=== PATIENT | female | born 1945 | race Caucasian/White ===

== ENCOUNTER 2019-09-14 17:05 | Inpatient (IN) | payer MEDICARE, OTHER ==
[~2019-09-14] VITALS: Ht 160 cm; Wt 46.7 kg
--- NOTE | 2019-09-14 17:20 | NUR ---
Patient bib pvt ambulance from [facility], on a 5150 for GD. Speech is clear, speaks in complete sentences. A/Ox2. No acute neuro deficits. Per report, patient was barging into other residents rooms and disrobing/taking clothes off. Respiratory even and unlabored, no cough no sob. No acute cardiovascular distress. No /GI symptoms. Patient in bed at lowest position, sr upx2, call light within reach. Fall precautions implemented per protocol.
[2019-09-14 17:42] LABS: BASOPHILS % (AUTO) 0.5 % (0.0-2.0); EOSINOPHILS # (AUTO) 0.3 K/uL (0.0-0.7); EOSINOPHILS % (AUTO) 4.4 % (0.0-7.0); HEMATOCRIT 35.9 % (31.2-41.9); LYMPHOCYTES # (AUTO) 1.6 K/uL (20.0-40.0); LYMPHOCYTES % (AUTO) 23.9 % (20.5-51.5); MEAN CORPUSCULAR HEMOGLOBIN 32.1 uug (24.7-32.8); MEAN CORPUSCULAR HGB CONC 34 g/dL (32.3-35.6); MEAN CORPUSCULAR VOLUME 95.9 fL (75.5-95.3); MONOCYTES # (AUTO) 0.7 K/uL (2.0-10.0); MONOCYTES % (AUTO) 10.4 % (0.0-11.0); NEUTROPHILS # (AUTO) 4.1 K/uL (1.8-8.9); NEUTROPHILS % (AUTO) 60.8 % (38.5-71.5); PLATELET COUNT (AUTO) 204 K/uL (179-408); RED BLOOD CELL COUNT(AUTO) 3.74 MIL/uL (3.63-4.92); WHITE BLOOD COUNT (AUTO) 6.7 K/uL (3.8-11.8)
[2019-09-14] MEDS ORDERED: CALC-555 PO (17:42)
[2019-09-14] MEDS ORDERED: LEVO50TA8 PO (17:42)
[2019-09-14] MEDS ORDERED: ZINC220C8 PO (17:42)
[2019-09-14] MEDS ORDERED: BETH25TA10 PO (17:42)
[2019-09-14] MEDS ORDERED: AMIN30LI27 PO (17:42)
[2019-09-14] MEDS ORDERED: sodium chloride PO (17:42)
[2019-09-14] MEDS ORDERED: SERT50TA PO (17:42)
[2019-09-14] MEDS ORDERED: GABA-532 PO (17:42)
[2019-09-14] MEDS ORDERED: MAGN400O6 PO (17:42)
[2019-09-14] MEDS ORDERED: BENZ0.5T43 PO (17:42)
[2019-09-14] MEDS ORDERED: ASCO500C18 PO (17:42)
[2019-09-14] MEDS ORDERED: BISA10SU61 RC (17:42)
[2019-09-14] MEDS ORDERED: OLAN5TAB3 PO (17:42)
[2019-09-14] MEDS ORDERED: CHOL100034 PO (17:42)
[2019-09-14] MEDS ORDERED: ACET-2154 PO (17:42)
[2019-09-14] MEDS ORDERED: CYAN-10 IM (17:42)
[2019-09-14] MEDS ORDERED: FERR325T28 PO (17:42)
[2019-09-14] MEDS ORDERED: MULT1TAB73 PO (17:42)
[2019-09-14] MEDS ORDERED: OMEP40CA13 PO (17:42)
[2019-09-14 17:51] LABS: CARBON DIOXIDE 31 mmol/L (21-32); CHLORIDE 101 mmol/L (98-107); CREATININE 0.9 mg/dL (0.6-1.3); GLUCOSE 75 mg/dL (74-106); POTASSIUM 4.2 mmol/L (3.5-5.1); UREA NITROGEN, BLOOD 22 mg/dL (7-18)
[2019-09-14 17:55] LABS: ETHANOL < 3 MG/DL (0-0)
[2019-09-14 17:56] LABS: ALANINE AMINOTRANSFERASE 24 U/L (14-59); ALKALINE PHOSPHATASE 67 U/L (50-136); ASPARTATE AMINOTRANSFERASE 20 U/L (15-37); BILIRUBIN,DIRECT 0.2 mg/dL (0.0-0.2); BILIRUBIN,TOTAL 0.6 mg/dL (0.2-1.0)
[2019-09-14 18:04] LABS: ACETAMINOPHEN < 2.0 ug/mL (10-30); THYROID STIMULATING HORMONE 0.433 mIU/mL (0.358-3.740)
[2019-09-14 18:12] LABS: *BILIRUBIN,URIN NEGATIVE (NEGATIVE); *COLOR,URINE YELLOW (YELLOW); *KETONES,URINE NEGATIVE (NEGATIVE); LEUKOCYTE ESTERASE ,URINE 2+ (NEGATIVE); NITRITE, URINE NEGATIVE (NEGATIVE); PH,URINE 6.5 (5.0-8.0); UGLUCOSE NEGATIVE (NEGATIVE)
[2019-09-14 18:13] LABS: *BLOOD, URINE TRACE (NEGATIVE); *CLARITY,URINE SLIGHTLY CLOUDY (CLEAR)
[2019-09-14 18:18] LABS: BACTERIA,URINE MANY /HPF (NONE SEEN); MUCUS,URINE MANY /LPF (0-FEW); SQUAMOUS EPITHELIAL CELL,UR FEW /HPF (NONE SEEN); WBC,URINE 50-80 /HPF (0-3)
[2019-09-14 18:24] LABS: *AMPHETAMINE, URINE NEGATIVE (NEGATIVE); *BARBITURATE, URINE NEGATIVE (NEGATIVE); *CANNABINOID, URINE NEGATIVE (NEGATIVE); *COCCAINE, URINE NEGATIVE (NEGATIVE); *OPIATE, URINE NEGATIVE (NEGATIVE); *PHENCYCLIDINE SCREEN,URINE NEGATIVE (NEGATIVE)
--- NOTE | 2019-09-14 18:25 | NUR ---
Report given to TERRY Rossi
[2019-09-14] MEDS ORDERED: CEphaleXIN 500 MG CAPSULE ONE (18:27)
[2019-09-14] MEDS ORDERED: CEphaleXIN 500 MG CAPSULE PO ONE (18:30)
--- NOTE | 2019-09-14 18:42 | NUR ---
Patient transported to MHU in stable condition.
--- NOTE | 2019-09-14 18:50 | NUR ---
Received patient from ER with 5150 hold for GD ,VS taken keep patient comfortable ,patient denies any pain or discomfort. will endorse to next shift nurse.
[2019-09-14 18:53] VITALS: BP 99/64
[2019-09-14] MEDS ORDERED: LORAZEPAM 0.5 MG TABLET PO PRN (20:15)
[2019-09-14] MEDS ORDERED: ACETAMINOPHEN 325 MG TABLET PO PRN (20:15)
[2019-09-14] MEDS ORDERED: MAGNESIUM HYDROXIDE 30 ML LIQUID UDC PO PRN ×2 (20:15→22:00)
[2019-09-14] MEDS ORDERED: TEMAZEPAM 7.5 MG CAPSULE PO PRN (20:15)
[2019-09-14] MEDS ORDERED: MAG HYDROX/AL HYDROX/SIMETH 30 ML LIQUID UDC PO PRN (20:15)
[2019-09-14] MEDS ORDERED: BISACODYL 10 MG SUPP.RECT RC SCH (22:00)
--- NOTE | 2019-09-14 22:36 | NUR ---
ADMISSION NOTE:71 YRS OLD FEMALE WAS ADMITTED AFTER MEDICALLY CLEARED FROM ER.PT HAS BEEN NON-COMPLIANT WITH HER PSYCHOTROPIC MEDICATIONS AND HAS BEEN DISROBING AND WALKING INTO OTHER RESIDENT'S ROOMS PT IS A/O 2,ANXIOUS,RESTLESS,SUSPICIOUS,GUARDED AND RESPONDING TO INTERNAL STIMULI.UNSTEADY ON HER FEET.UNCOOPERATIVE WITH INTERVIEW.PT REFUSED TO SIGN ALL ADMITTED PAPERS.PT HAS HX.OF COPD,HYPOTHYROIDISM,PARKINSON'S,ACUTE CHOLECYSTITIS,ALZHEIMER'S,DEMENTIA,SCHIZOPHRENIA,MAJOR DEPRESSIVE D/O AND PRESENCE OF AUTOMATIC(IMPLANTABLE)CARDIAC DEFIBRILLATOR.DENIES SI/HI.STILL HAVING PARANOID.POOR INSIGHT AND IMPAIRED JUDGEMENT.WILL CONTINUE TO MONITOR.
[2019-09-15] MEDS: ZOLPIDEM 5 MG TABLET PO PRN (01:45)
--- NOTE | 2019-09-15 06:47 | NUR ---
NURSING NOTE:PT IS ANXIOUS,RESTLESS,NEEDY,DEMANDING AND EASILY IRRITABLE/ANGRY UPON APPROACH.PT GOT OOB WITHOUT CALL AND WAIT FOR ASSIST.UNSTEADY ON HER FEET.YELLING AND SCREAMING WHEN REDIRECTED.SHOWERED THIS MORNING.PT STARTED YELLING/SCREAMING WHEN STAFF PUT [facility] GOWN ON HER.PT STATED"I DON'T WANT ANYTHING FROM [facility]"
[2019-09-15] MEDS: PANTOPRAZOLE SODIUM 40 MG TABLET.DR PO SCH (07:00)
[2019-09-15 07:30] VITALS: BP 93/55
[2019-09-15] MEDS: PROTEIN SUPPLEMENT (PROSTAT) 30 ML LIQUID PO SCH ×3 (08:00→17:00)
[2019-09-15] MEDS: CHOLECALCIFEROL 1,000 UNIT TABLET PO SCH ×2 (08:44→09:00)
[2019-09-15] MEDS: ASCORBIC ACID 500 MG TABLET PO SCH ×2 (08:45→09:00)
[2019-09-15] MEDS: GABAPENTIN 100 MG CAPSULE PO SCH ×4 (08:45→17:02)
[2019-09-15] MEDS: BETHANECHOL CHLORIDE 25 MG TABLET PO SCH ×5 (08:45→21:10)
[2019-09-15] MEDS: FERROUS SULFATE 325 MG TABEC PO SCH ×2 (08:45→09:00)
[2019-09-15] MEDS: MULTIVITAMINS,THERAPEUTIC TABLET PO SCH ×2 (08:45→09:00)
[2019-09-15] MEDS: CEphaleXIN 500 MG CAPSULE PO SCH ×2 (08:45→21:10)
[2019-09-15] MEDS: CALCIUM CARB/VITAMIN D 500MG-200UNITS TABLET PO SCH ×2 (08:46→09:00)
[2019-09-15] MEDS: ZINC SULFATE 220 MG CAPSULE PO SCH ×2 (08:46→09:00)
[2019-09-15] MEDS ORDERED: Medication Not On Formulary EA (Multivitamins (Multivitamin) 1 TAB) PO SCH (09:00)
[2019-09-15] MEDS ORDERED: GABAPENTIN 100 MG CAPSULE PO SCH (09:00)
[2019-09-15] MEDS ORDERED: Medication Not On Formulary EA (Ascorbic Acid (Vitamin C) 500 MG) PO SCH (09:00)
[2019-09-15] MEDS ORDERED: Medication Not On Formulary EA (Amino Acids/Protein Hydrolys (Pro-Stat Sugar Free Liquid PO SCH (09:00)
[2019-09-15] MEDS ORDERED: LEVOTHYROXINE SODIUM 50 MCG TABLET PO SCH ×2 (09:00)
[2019-09-15] MEDS ORDERED: BENZTROPINE MESYLATE 0.5 MG TABLET PO SCH (09:00)
[2019-09-15] MEDS ORDERED: Medication Not On Formulary EA (Cholecalciferol (Vitamin D3) (Vitamin D3 CHEW.TAB) 1,000 PO SCH (09:00)
[2019-09-15] MEDS ORDERED: Medication Not On Formulary EA (Omeprazole 1 CAP) PO SCH (09:00)
[2019-09-15] MEDS: LEVOTHYROXINE SODIUM 125 MCG TABLET PO SCH (11:00)
[2019-09-15 15:28] VITALS: BP 116/62
--- NOTE | 2019-09-15 15:38 | NUR ---
Initial Discharge Plan: Pt is a resident of [facility] located at [address] [place] [address], [id number]; [phone]. Per pts emergency contact, madiha White; [phone], family would like pt to return to this facility. Tester Equipment spoke with facility's chest pain coordinator, Gertrudis [phone], who states that pt will be allowed back to the facility after discharge. transportation maintenance worker will continue to work with pt, pt family, and MD to form a safe and proper discharge.
--- NOTE | 2019-09-15 15:39 | NUR ---
Polo Coach spoke with pts family, niece Brianna White; [phone], family would like pt to return to this facility. Per pts niece, pt does not have family in [place], and all of pts relatives live in [place], making it difficult for them to fully participate in pts plan of care. quality worker will continue to work with pt, pt family, and MD to form a safe and proper discharge.
--- NOTE | 2019-09-15 15:41 | NUR ---
Rhinologist spoke with [facility] facility[facility] cold rolling coordinator, Gertrudis [phone], and stated that pt will be allowed back to the facility after pt is discharged from the MHU.
--- NOTE | 2019-09-15 17:57 | NUR ---
GPS: RECEIVED PATIENT ON HER CHAIR, AOX1, PATIENT CALM HOWEVER EASILY IRRITABLE, SELECTIVELY TAKING HER MEDICATION, PATIENT TRIED TO REMOVE HER CLOTHES, PATIENT TOOK HER ANTIBIOTICS , PATIENT ATE HER MEALS, AND ABLE TO WALK WITH ASSIST WITH PT,CALLED AND LEFT MESSAGE TO HER NIECE REGARDING THE ADMISSION WITH NO REPLY UPTO THIS TIME, PATIENT SEEN AND EXAMINED BY DR. ALFORD, WITH NEW ORDERS MADE , READ BACK ORDERS AND CARRIED OUT,PATIENT TOOK HER 5PM MEDICATION,NOTED PATIENT TALKING TO HER SELF PATIENT REDIRECTED HOWEVER REFUSED, PATIENT ON MONITORING FOR FALL RISK, WILL CONTINUE MONITOR
[2019-09-15 20:00] VITALS: BP 104/59
[2019-09-15] MEDS: OLANZAPINE 2.5 MG TABLET PO SCH (21:10)
[2019-09-16] MEDS: LEVOTHYROXINE SODIUM 125 MCG TABLET PO SCH (06:52)
[2019-09-16] MEDS: PANTOPRAZOLE SODIUM 40 MG TABLET.DR PO SCH (06:52)
[2019-09-16 07:30] VITALS: BP 103/58
[2019-09-16] MEDS: PROTEIN SUPPLEMENT (PROSTAT) 30 ML LIQUID PO SCH ×3 (08:00→17:05)
[2019-09-16] MEDS: ASCORBIC ACID 500 MG TABLET PO SCH (08:27)
[2019-09-16] MEDS: FERROUS SULFATE 325 MG TABEC PO SCH (08:27)
[2019-09-16] MEDS: GABAPENTIN 100 MG CAPSULE PO SCH ×4 (08:27→17:04)
[2019-09-16] MEDS: CHOLECALCIFEROL 1,000 UNIT TABLET PO SCH (08:27)
[2019-09-16] MEDS: OLANZAPINE 2.5 MG TABLET PO SCH ×4 (08:27→21:12)
[2019-09-16] MEDS: CEphaleXIN 500 MG CAPSULE PO SCH ×2 (08:27→09:00)
[2019-09-16] MEDS: BETHANECHOL CHLORIDE 25 MG TABLET PO SCH ×6 (08:39→21:12)
[2019-09-16] MEDS: ZINC SULFATE 220 MG CAPSULE PO SCH (08:39)
[2019-09-16] MEDS: CALCIUM CARB/VITAMIN D 500MG-200UNITS TABLET PO SCH (08:40)
[2019-09-16] MEDS: MULTIVITAMINS,THERAPEUTIC TABLET PO SCH (08:40)
[2019-09-16] MEDS ORDERED: MEROPENEM 0.5 G in IV NORMAL SALINE 50 ML IV SCH (14:00)
--- NOTE | 2019-09-16 14:23 | NUR ---
patient is alert and oriented x1 confused and disoriented, very irritable and agitated, refused all am medication ,yelling at time.place patient in eduardo-chair , continue close monitoring.
[2019-09-16 16:00] VITALS: BP 107/53
[2019-09-16] MEDS: MEROPENEM 0.5 G in IV NORMAL SALINE 50 ML IV SCH (17:04)
[2019-09-16] MEDS: SODIUM CHLORIDE 1,000 MG TABLET PO SCH (17:04)
[2019-09-16 17:47] VITALS: BP 107/53
--- NOTE | 2019-09-16 18:30 | NUR ---
Pt tolerated Mercury Cell Cleaner procedure. IV started on left arm for abx. Pt cooperative with care. 1:1 sitter for safety.
--- NOTE | 2019-09-16 20:00 | NUR ---
Pt received awake, alert and responsive. Not in any active distress. Pt is calm. Sitter is at bedside. Contact precautions maintained for ESBL in urine. Will continue to monitor.
--- NOTE | 2019-09-16 21:00 | NUR ---
Pt currently asleep. Refused all medications at this time. Offered 3x, and tried to explain risks and benefits, but patient repeatedly says: "I want to sleep! Can you not understand French?" Henrik tried to persuade patient as well, but patient verbalized being tired and being unable to sleep for a few days. Allowed patient to rest. Meds prepared, wasted. Will continue to monitor patient and report to MD as needed. No signs of restlessness when left alone.
[2019-09-16 23:59] VITALS: BP 94/59
[2019-09-17] MEDS: MEROPENEM 0.5 G in IV NORMAL SALINE 50 ML IV SCH ×3 (03:41→15:04)
--- NOTE | 2019-09-17 04:00 | NUR ---
Patient refuses IV ATB. Offered multiple times, but patient keeps her blanket over face. When tried to remove, patient kicks and trashes in bed. Also screams and yells until left alone. Unable to explain risks and benefits. Gloria FINLEY paged for PRN medications to calm her down.
--- NOTE | 2019-09-17 05:19 | NUR ---
Pt continues to refuse ADl care, patient has very wet diapers, but refuses to be changed. Continues to refuse IV ATB. Patient just yells, "HELP" and kicks and trashes in bed. Space given, but patient continues to act this way. MD contacted again. Received telephone orders.
[2019-09-17] MEDS ORDERED: OLANZAPINE 10 MG VIAL IM ONE (05:30)
--- NOTE | 2019-09-17 05:51 | NUR ---
Patient given Zyprexa 3 mg IM as ordered. Able to provide care, diaper changed. Partial linen change done. IV antibiotic started at this time. Pt's VS checked as well. Currently calm and cooperative will continue to monitor.
[2019-09-17 05:59] VITALS: BP 112/57
[2019-09-17] MEDS: PANTOPRAZOLE SODIUM 40 MG TABLET.DR PO SCH (06:42)
[2019-09-17] MEDS: LEVOTHYROXINE SODIUM 125 MCG TABLET PO SCH (06:42)
--- NOTE | 2019-09-17 06:42 | NUR ---
Pt currently sleeping at this time, sedated Vs checked and stable. Recorded on flowsheet. Unable to give PO meds, patient is completely asleep, unable to fully awaken to give medications to swallow. Pt had 10 hours of sleep. Will continue to monitor and endorse accordingly.
[2019-09-17 06:59] LABS: CARBON DIOXIDE 28 mmol/L (21-32); CHLORIDE 105 mmol/L (98-107); CREATININE 0.6 mg/dL (0.6-1.3); GLUCOSE 83 mg/dL (74-106); POTASSIUM 3.8 mmol/L (3.5-5.1); UREA NITROGEN, BLOOD 26 mg/dL (7-18)
[2019-09-17] MEDS: PROTEIN SUPPLEMENT (PROSTAT) 30 ML LIQUID PO SCH ×3 (08:00→17:00)
[2019-09-17] MEDS: VITAMINS A AND D OINT TP SCH (09:00)
[2019-09-17] MEDS: GABAPENTIN 100 MG CAPSULE PO SCH ×3 (09:00→17:00)
[2019-09-17] MEDS: BETHANECHOL CHLORIDE 25 MG TABLET PO SCH ×4 (09:00→21:00)
[2019-09-17] MEDS: SODIUM CHLORIDE 1,000 MG TABLET PO SCH ×3 (09:00→17:00)
[2019-09-17] MEDS: OLANZAPINE 2.5 MG TABLET PO SCH (09:00)
[2019-09-17] MEDS: ZINC SULFATE 220 MG CAPSULE PO SCH (09:00)
[2019-09-17] MEDS: MULTIVITAMINS,THERAPEUTIC TABLET PO SCH (09:00)
[2019-09-17] MEDS: CALCIUM CARB/VITAMIN D 500MG-200UNITS TABLET PO SCH (09:00)
[2019-09-17] MEDS: ASCORBIC ACID 500 MG TABLET PO SCH (09:00)
[2019-09-17] MEDS: FERROUS SULFATE 325 MG TABEC PO SCH (09:00)
[2019-09-17] MEDS: CHOLECALCIFEROL 1,000 UNIT TABLET PO SCH (09:00)
--- NOTE | 2019-09-17 09:00 | NUR ---
will provide tx when A and D comes from pharmacy.
--- NOTE | 2019-09-17 09:00 | NUR ---
patient refused medications and non compliant with care, try to provide diaper change and celan ashley whitfield patient to prevent skin breakdown patient refused .
--- NOTE | 2019-09-17 13:11 | NUR ---
patient refused noon meds offered and encourage to take her meds let patient know what the meds are for , still patient refused.
--- NOTE | 2019-09-17 17:30 | NUR ---
PATIENT REFUSED 1700 MEDICATIONS, EXPLAIN RISK AND BENEFITS CONTINUE TO OFFER , STILL PATIENT REFUSED MEDICATIONS, CONTINUES TO REFUSE CARE.
--- NOTE | 2019-09-17 19:30 | NUR ---
RECEIVED PT AWAKE ON BED. PT SHOWS NO SIGNS OF ACUTE DISTRESS. PT DOESN'T WANT TO TALK. REFUSE TO TAKE HER BLOOD PRESSURE. SITTER AT BEDSIDE FOR SAFETY. WILL CONTINUE TO MONITOR.
[2019-09-17] MEDS: OLANZAPINE 5 MG TABLET PO SCH (21:00)
[2019-09-17] MEDS ORDERED: OLANZAPINE 2.5 MG TABLET PO SCH (21:00)
[2019-09-17] MEDS: OXCARBAZEPINE 150 MG TABLET PO SCH (21:00)
--- NOTE | 2019-09-17 22:30 | NUR ---
DR. ALFORD SEEN THE PT. PT REFUSED HER MEDICATIONS. EXPLAIN RISK AND BENEFITS CONTINUE TO OFFER. SITTER AT BEDSIDE. WILL CONTINUE TO MONITOR.
[2019-09-18] MEDS: MEROPENEM 0.5 G in IV NORMAL SALINE 50 ML IV SCH ×2 (03:58→15:04)
--- NOTE | 2019-09-18 06:09 | NUR ---
PT SLEPT 4.15H. PT SHOWS NO SIGNS OF ACUTE DISTRESS. SITTER AT BEDSIDE FOR SAFETY. SAFETY AND COMFORT PROVIDED. PT REFUSED HER MEDICATIONS. PT HAVE EPISODES OF HALLUCINATIONS AND CONFUSE. PT NEEDS REORIENTATION. PT WANTS TO TAKE OFF HER CODE ALERT BRACELET, IV AND ID BRACELET. PT ALL NEEDS ARE MET. WILL ENDORSE TO INCOMING NURSE FOR CONTINUITY OF CARE.
[2019-09-18] MEDS: LEVOTHYROXINE SODIUM 125 MCG TABLET PO SCH (06:37)
[2019-09-18] MEDS: PANTOPRAZOLE SODIUM 40 MG TABLET.DR PO SCH (06:37)
[2019-09-18 06:38] LABS: CARBON DIOXIDE 27 mmol/L (21-32); CHLORIDE 104 mmol/L (98-107); CREATININE 0.7 mg/dL (0.6-1.3); GLUCOSE 80 mg/dL (74-106); POTASSIUM 4.1 mmol/L (3.5-5.1); UREA NITROGEN, BLOOD 25 mg/dL (7-18)
[2019-09-18 07:58] VITALS: BP 105/58
[2019-09-18] MEDS: PROTEIN SUPPLEMENT (PROSTAT) 30 ML LIQUID PO SCH ×3 (08:00→17:00)
[2019-09-18] MEDS: OLANZAPINE 5 MG TABLET PO SCH ×2 (08:39→21:00)
[2019-09-18] MEDS: SODIUM CHLORIDE 1,000 MG TABLET PO SCH ×3 (08:39→16:25)
[2019-09-18] MEDS: FERROUS SULFATE 325 MG TABEC PO SCH (08:39)
[2019-09-18] MEDS: OXCARBAZEPINE 150 MG TABLET PO SCH ×3 (08:39→21:00)
[2019-09-18] MEDS: CALCIUM CARB/VITAMIN D 500MG-200UNITS TABLET PO SCH (08:39)
[2019-09-18] MEDS: CHOLECALCIFEROL 1,000 UNIT TABLET PO SCH (08:39)
[2019-09-18] MEDS: GABAPENTIN 100 MG CAPSULE PO SCH ×3 (08:39→16:25)
[2019-09-18] MEDS: ZINC SULFATE 220 MG CAPSULE PO SCH (08:39)
[2019-09-18] MEDS: MULTIVITAMINS,THERAPEUTIC TABLET PO SCH (08:39)
[2019-09-18] MEDS: BETHANECHOL CHLORIDE 25 MG TABLET PO SCH ×4 (08:39→21:00)
[2019-09-18] MEDS: ASCORBIC ACID 500 MG TABLET PO SCH (08:39)
[2019-09-18] MEDS: VITAMINS A AND D OINT TP SCH (08:44)
--- NOTE | 2019-09-18 08:47 | NUR ---
patient is cooperative, consumed breakfast.taken all medications and patient did not refused treatment.
--- NOTE | 2019-09-18 10:00 | NUR ---
Gps/Binding Bench Worker- Remains on 1:1 Nursing supervision for safety . Needed prompting to initiate simple task, i.e. to feed self . Ambulated by P.T. patient equesting to use white socks/slipper, w/c not available. Noted episode of patient kneeling , crawled out of bed, yelling , encouraged to verbalized needs.Confused, mumbles., tends to covers head with her blanket, discouraged from doing so. Continue to monitor safety.
--- NOTE | 2019-09-18 10:26 | NUR ---
Discharge Planning RAHEEL Note: RAHEEL spoke with [facility] (admissions: [facility] cell [phone]) who confirmed patient can return, even beyond the 7 day bed hold, when patient is stable back to facility.
[2019-09-18 15:00] VITALS: BP 91/46
--- NOTE | 2019-09-18 15:00 | NUR ---
Gps/Veneer Measurer- Bladder incontinence noted, reddened sacro coccygeal area, kept skin dry/clean skin moisturized applied, offloading heels, floated on a pillow, A&D aniya .applied .
--- NOTE | 2019-09-18 16:00 | NUR ---
Gps/Turbine Engineer- Patient noted ,increasing interaction with staff, answers to simple conversation and command, fluids offered, encouraged . [place] offred, noted pt. responding to internal stimuli, talking to herself., staring spells .
[2019-09-18 19:45] VITALS: BP 95/50
--- NOTE | 2019-09-18 20:00 | NUR ---
Patient received into care, laying in bed asleep, with 1:1 sitter at bedside. Patient has no s/s of acute distress or discomfort noted or observed. All safety and fall precaution measures are in place. Will continue to monitor.
--- NOTE | 2019-09-18 21:00 | NUR ---
Patient refused HS prescribed medications stating she "doesn't need them." Nurse explained risks/benefits three times but patient still refused.
[2019-09-19] MEDS: MEROPENEM 0.5 G in IV NORMAL SALINE 50 ML IV SCH ×2 (03:01→16:26)
[2019-09-19] MEDS: PANTOPRAZOLE SODIUM 40 MG TABLET.DR PO SCH (06:14)
[2019-09-19] MEDS: LEVOTHYROXINE SODIUM 125 MCG TABLET PO SCH (06:14)
--- NOTE | 2019-09-19 06:21 | NUR ---
Patient refused 0700 scheduled prescribed protonix and synthroid. Nurse explained the risks/benefits three times and patient still refused.
--- NOTE | 2019-09-19 06:46 | NUR ---
Patient slept intermittently throughout night with 1:1 sitter at bedside. Patient was uncooperative with prescribed medication regimen, with nurse explaining the risks/benefits of not taking medications as ordered by MD. All safety and fall precaution measures remain in place. Call light and personal items are in place.
[2019-09-19 06:56] LABS: CARBON DIOXIDE 30 mmol/L (21-32); CHLORIDE 104 mmol/L (98-107); CREATININE 0.6 mg/dL (0.6-1.3); GLUCOSE 85 mg/dL (74-106); POTASSIUM 4.1 mmol/L (3.5-5.1); UREA NITROGEN, BLOOD 21 mg/dL (7-18)
[2019-09-19] MEDS: PROTEIN SUPPLEMENT (PROSTAT) 30 ML LIQUID PO SCH ×3 (08:00→17:00)
--- NOTE | 2019-09-19 08:00 | NUR ---
Received pt. resting in bed alert oriented to self. Pt. on 5250 for GD with 1:1 sitter. Pt. has IV in R forearm 20 gauge intact patent saline lock. pt. denies pain/ discomfort. Pt. denies SOB/ difficulty breathing. safety measures in place. will continue to monitor pt.
[2019-09-19] MEDS: BETHANECHOL CHLORIDE 25 MG TABLET PO SCH ×4 (09:00→20:55)
[2019-09-19] MEDS: Z GUARD REMEDY PASTE 57 GM TUBE TOP SCH ×2 (09:00→21:06)
[2019-09-19] MEDS: OLANZAPINE 5 MG TABLET PO SCH ×2 (09:00→20:55)
[2019-09-19] MEDS: GABAPENTIN 100 MG CAPSULE PO SCH ×3 (09:00→17:00)
[2019-09-19] MEDS: OXCARBAZEPINE 150 MG TABLET PO SCH ×3 (09:00→20:55)
[2019-09-19] MEDS: MULTIVITAMINS,THERAPEUTIC TABLET PO SCH (09:00)
[2019-09-19] MEDS: CALCIUM CARB/VITAMIN D 500MG-200UNITS TABLET PO SCH (09:00)
[2019-09-19] MEDS: FERROUS SULFATE 325 MG TABEC PO SCH (09:00)
[2019-09-19] MEDS: ZINC SULFATE 220 MG CAPSULE PO SCH (09:00)
[2019-09-19] MEDS: VITAMINS A AND D OINT TP SCH (09:00)
[2019-09-19] MEDS: SODIUM CHLORIDE 1,000 MG TABLET PO SCH ×3 (09:00→17:00)
[2019-09-19] MEDS: ASCORBIC ACID 500 MG TABLET PO SCH (09:00)
[2019-09-19] MEDS: CHOLECALCIFEROL 1,000 UNIT TABLET PO SCH (09:11)
[2019-09-19 09:37] VITALS: BP 123/51
--- NOTE | 2019-09-19 13:00 | NUR ---
Made multiple attempts to give pt. AM medication. Pt. only took 1 medication out of all AM medications and asked for me to come back after breakfast. Came back after breakfast and pt. stated she did not want to take medication anymore. Asked another RN to assist me in passing meds. Pt. threw medications at wall and refused. Charge Nurse in MHU aware of pt. refusing medication and pt. will have Riese hearing today.
[2019-09-19] MEDS: OLANZAPINE 10 MG VIAL IM PRN ×2 (14:43→21:05)
[2019-09-19 15:58] VITALS: BP 97/44
--- NOTE | 2019-09-19 18:42 | NUR ---
Pt. refused PM medication. Educated pt. on risks and benefits and pt. still refused. Pt. denies pain or discomfort. 1:[address] No SI/ HI. No aggressive behavior. Pt. noncompliant with plan of care. safety measures in place. will endorse to pm nurse
[2019-09-19 19:45] VITALS: BP 98/55
[2019-09-20] MEDS: MEROPENEM 0.5 G in IV NORMAL SALINE 50 ML IV SCH ×2 (04:40→17:46)
[2019-09-20] MEDS: PANTOPRAZOLE SODIUM 40 MG TABLET.DR PO SCH (06:35)
[2019-09-20] MEDS: LEVOTHYROXINE SODIUM 125 MCG TABLET PO SCH (06:36)
--- NOTE | 2019-09-20 07:51 | NUR ---
Received pt. resting in bed. Pt. has 1:1 sitter for Gravely disabled on 5250. Pt. has IV in R forearm 22 gauge intact patent saline lock. Pt. on room air. When asked if she has pain/ discomfort pt. blankly stares at me with no response. Upon observation no facial grimacing noted, no difficulty breathing/ SOB. Educated pt. she has AM medication. Importance of taking medication as this is what the ordered. Educated pt. if she refuses to take PO Zyprexa IM Zyprexa will be given. Stated I will give her time to think about it and come back. Safety measures in place. Will continue to monitor pt.
[2019-09-20 08:00] VITALS: BP 128/66
[2019-09-20] MEDS: PROTEIN SUPPLEMENT (PROSTAT) 30 ML LIQUID PO SCH ×3 (08:00→17:00)
[2019-09-20] MEDS: FERROUS SULFATE 325 MG TABEC PO SCH (09:00)
[2019-09-20] MEDS: ZINC SULFATE 220 MG CAPSULE PO SCH (09:00)
[2019-09-20] MEDS ORDERED: CYANOCOBALAMIN 1000 MCG/ML VIAL IM SCH (09:00)
[2019-09-20] MEDS: SODIUM CHLORIDE 1,000 MG TABLET PO SCH ×3 (09:00→17:00)
[2019-09-20] MEDS: ASCORBIC ACID 500 MG TABLET PO SCH (09:00)
[2019-09-20] MEDS: MULTIVITAMINS,THERAPEUTIC TABLET PO SCH (09:00)
[2019-09-20] MEDS: CHOLECALCIFEROL 1,000 UNIT TABLET PO SCH (09:00)
[2019-09-20] MEDS: GABAPENTIN 100 MG CAPSULE PO SCH ×3 (09:00→17:00)
[2019-09-20] MEDS: OLANZAPINE 5 MG TABLET PO SCH ×2 (09:00→21:00)
[2019-09-20] MEDS: CALCIUM CARB/VITAMIN D 500MG-200UNITS TABLET PO SCH (09:00)
[2019-09-20] MEDS: BETHANECHOL CHLORIDE 25 MG TABLET PO SCH ×4 (09:00→21:00)
[2019-09-20] MEDS: OXCARBAZEPINE 150 MG TABLET PO SCH ×3 (09:00→21:00)
--- NOTE | 2019-09-20 10:52 | NUR ---
Pt. stated she will take AM Zyprexa and wanted it in applesauce. After coming back with Zyprexa in apple sauce pt. is refusing medication. Will attempt to try again before giving IM medication of Zyprexa.
[2019-09-20] MEDS: OLANZAPINE 10 MG VIAL IM PRN ×2 (11:45→21:28)
--- NOTE | 2019-09-20 11:54 | NUR ---
Gave pt. IM injection of Zyprexa due to pt. refusing PO medication of Zyprexa. Pt. non compliant with care. Pt.aggressive towards nursing staff. Pt. laying in bed denies SI/ HI. 1:[address] for safety.
[2019-09-20] MEDS: VITAMINS A AND D OINT TP SCH (12:11)
[2019-09-20] MEDS: Z GUARD REMEDY PASTE 57 GM TUBE TOP SCH ×2 (12:12→21:28)
[2019-09-20 16:00] VITALS: BP 99/56
--- NOTE | 2019-09-20 17:53 | NUR ---
Pt. removed IV. New IV in place in R hand 22 gauge intact patent saline lock. IV antibiotics given. Safety measures in place. 1:1 sitter at bedside. All needs met.
[2019-09-20 20:00] VITALS: BP 101/54
[2019-09-21] MEDS: MEROPENEM 0.5 G in IV NORMAL SALINE 50 ML IV SCH ×2 (04:05→15:57)
[2019-09-21] MEDS: LEVOTHYROXINE SODIUM 125 MCG TABLET PO SCH (06:16)
[2019-09-21] MEDS: PANTOPRAZOLE SODIUM 40 MG TABLET.DR PO SCH (06:16)
--- NOTE | 2019-09-21 06:51 | NUR ---
patient slept 9 hours, was very uncooperative with changing in morning. iv atb given still on contact precautions. patient continues to strike at nurses while changing. in no acute distress. stable condition.
--- NOTE | 2019-09-21 07:50 | NUR ---
PATIENT IS LAYING IN BED, NO COMBATIVE BEHAVIOUR NOTED AT THIS TIME, NO DISTRESS NOTED, SITTER IS AT BEDSIDE
[2019-09-21] MEDS: CALCIUM CARB/VITAMIN D 500MG-200UNITS TABLET PO SCH (08:18)
[2019-09-21] MEDS: OLANZAPINE 5 MG TABLET PO SCH ×2 (08:19→20:19)
[2019-09-21] MEDS: SODIUM CHLORIDE 1,000 MG TABLET PO SCH ×3 (08:19→16:03)
[2019-09-21] MEDS: MULTIVITAMINS,THERAPEUTIC TABLET PO SCH (08:19)
[2019-09-21] MEDS: CHOLECALCIFEROL 1,000 UNIT TABLET PO SCH (08:19)
[2019-09-21] MEDS: ZINC SULFATE 220 MG CAPSULE PO SCH (08:19)
[2019-09-21] MEDS: BETHANECHOL CHLORIDE 25 MG TABLET PO SCH ×4 (08:19→20:18)
[2019-09-21] MEDS: ASCORBIC ACID 500 MG TABLET PO SCH (08:19)
[2019-09-21] MEDS: GABAPENTIN 100 MG CAPSULE PO SCH ×3 (08:20→16:03)
[2019-09-21] MEDS: PROTEIN SUPPLEMENT (PROSTAT) 30 ML LIQUID PO SCH ×3 (08:21→16:05)
[2019-09-21] MEDS: OXCARBAZEPINE 150 MG TABLET PO SCH ×3 (08:25→20:19)
[2019-09-21] MEDS: FERROUS SULFATE 325 MG TABEC PO SCH (08:27)
[2019-09-21] MEDS: Z GUARD REMEDY PASTE 57 GM TUBE TOP SCH ×2 (08:28→20:24)
[2019-09-21] MEDS: VITAMINS A AND D OINT TP SCH (08:28)
[2019-09-21 09:16] VITALS: BP 98/50
[2019-09-21 15:00] VITALS: BP 88/45
--- NOTE | 2019-09-21 18:28 | NUR ---
PATIENT IS IN BED, CALM, COMFORTABLE, NO COMBATIVE OR AGRESSIVE BEHAVIOUR NOTED, PATIENT TOOK ALL HER MEDS ORALLY, ATE GOOD MEALS, TOLERATED WELL. REPOSITIONED EVERY 2 HOURS, GOOD PERICARE PROVIDED, KEPT COMFORTABLE, CLEAN AND DRY, NEEDS MET TIMELY, SITTER AT BEDSIDE.
--- NOTE | 2019-09-21 19:30 | NUR ---
RECEIVED PT ON BED. PT IN NO ACUTE DISTRESS. IV INTACT. SITTER AT BEDSIDE. PLEASANT WHEN APPROACHED. SAFETY AND COMFORT PROVIDED. WILL CONTINUE TO MONITOR.
[2019-09-21 19:48] VITALS: BP 98/51
[2019-09-21] MEDS: ZOLPIDEM 5 MG TABLET PO PRN (22:25)
[2019-09-22] MEDS: MEROPENEM 0.5 G in IV NORMAL SALINE 50 ML IV SCH ×2 (03:13→17:33)
--- NOTE | 2019-09-22 06:32 | NUR ---
PT SLEPT 0500 H. PT SHOWS NO SIGNS OF ACUTE DISTRESS. PRESCRIBED MEDICATION GIVEN AND PT TOLERATED IT WELL. SITTER AT BEDSIDE.SAFETY AND COMFORT PROVIDED. ALL NEEDS ARE MET. WILL ENDORSE TO INCOMING NURSE FOR CONTINUITY OF CARE.
[2019-09-22] MEDS: LEVOTHYROXINE SODIUM 125 MCG TABLET PO SCH (06:46)
[2019-09-22] MEDS: PANTOPRAZOLE SODIUM 40 MG TABLET.DR PO SCH (06:46)
--- NOTE | 2019-09-22 07:56 | NUR ---
Received pt. resting in bed alert oriented to self. Pt. on 5250 for GD with 1:1 sitter. Pt. has IV in L hand 22 gauge intact patent saline lock. pt. denies pain/ discomfort. Pt. denies SOB/ difficulty breathing. safety measures in place. will continue to monitor pt.
[2019-09-22 08:00] VITALS: BP 99/57
[2019-09-22] MEDS: OLANZAPINE 5 MG TABLET PO SCH ×2 (08:11→20:26)
[2019-09-22] MEDS: CHOLECALCIFEROL 1,000 UNIT TABLET PO SCH (08:14)
[2019-09-22] MEDS: MULTIVITAMINS,THERAPEUTIC TABLET PO SCH (08:14)
[2019-09-22] MEDS: ZINC SULFATE 220 MG CAPSULE PO SCH (08:14)
[2019-09-22] MEDS: ASCORBIC ACID 500 MG TABLET PO SCH (08:14)
[2019-09-22] MEDS: GABAPENTIN 100 MG CAPSULE PO SCH ×3 (08:14→17:34)
[2019-09-22] MEDS: CALCIUM CARB/VITAMIN D 500MG-200UNITS TABLET PO SCH (08:14)
[2019-09-22] MEDS: FERROUS SULFATE 325 MG TABEC PO SCH (08:14)
[2019-09-22] MEDS: SODIUM CHLORIDE 1,000 MG TABLET PO SCH ×3 (08:14→17:34)
[2019-09-22] MEDS: BETHANECHOL CHLORIDE 25 MG TABLET PO SCH ×4 (08:14→20:26)
[2019-09-22] MEDS: OXCARBAZEPINE 150 MG TABLET PO SCH ×3 (08:14→20:26)
[2019-09-22] MEDS: VITAMINS A AND D OINT TP SCH (08:20)
[2019-09-22] MEDS: Z GUARD REMEDY PASTE 57 GM TUBE TOP SCH ×2 (08:20→20:26)
[2019-09-22] MEDS: PROTEIN SUPPLEMENT (PROSTAT) 30 ML LIQUID PO SCH ×3 (11:17→17:34)
[2019-09-22 16:00] VITALS: BP 97/50
--- NOTE | 2019-09-22 18:40 | NUR ---
Pt. compliant with taking medication and plan of care. Pt. ate all food. Pt. calm and cooperative throughout shift. Pt. remains on contact isolations for ESBL of urine. Pt. has IV in L hand 22 gauge intact patent saline lock. Safety measures in place. 1:1 sitter for safety. will endorse to pm nurse
--- NOTE | 2019-09-22 19:20 | NUR ---
Received patient lying in bed. Asleep, easily arouse to tactile stimuli. Calm and relax when left alone but gets anxious when talked to. Patient gets verbally abusive and strikes when touch, calm when left alone. No other unsafe behavior at this time. 1:1 sitter on site. Safety measure initiated. Continue to monitor.
[2019-09-22 20:00] VITALS: BP 97/47
[2019-09-23] MEDS: LEVOTHYROXINE SODIUM 125 MCG TABLET PO SCH (06:10)
[2019-09-23] MEDS: PANTOPRAZOLE SODIUM 40 MG TABLET.DR PO SCH (06:10)
--- NOTE | 2019-09-23 06:18 | NUR ---
Slept approximately 6.5 hours.
--- NOTE | 2019-09-23 07:57 | NUR ---
Patient calm and comfortable resting in bed with no signs of distress; patient will continue to be monitored.
[2019-09-23 08:00] VITALS: BP 120/62
[2019-09-23] MEDS: PROTEIN SUPPLEMENT (PROSTAT) 30 ML LIQUID PO SCH ×4 (08:00→18:40)
[2019-09-23] MEDS: FERROUS SULFATE 325 MG TABEC PO SCH ×2 (08:39→09:00)
[2019-09-23] MEDS: CHOLECALCIFEROL 1,000 UNIT TABLET PO SCH ×2 (08:40→09:00)
[2019-09-23] MEDS: SODIUM CHLORIDE 1,000 MG TABLET PO SCH ×4 (08:48→18:39)
[2019-09-23] MEDS: GABAPENTIN 100 MG CAPSULE PO SCH ×4 (08:49→17:08)
[2019-09-23] MEDS: CALCIUM CARB/VITAMIN D 500MG-200UNITS TABLET PO SCH ×2 (08:49→09:00)
[2019-09-23] MEDS: ASCORBIC ACID 500 MG TABLET PO SCH ×2 (08:49→09:00)
[2019-09-23] MEDS: BETHANECHOL CHLORIDE 25 MG TABLET PO SCH ×5 (08:49→21:00)
[2019-09-23] MEDS: MULTIVITAMINS,THERAPEUTIC TABLET PO SCH ×2 (08:49→09:00)
[2019-09-23] MEDS: OLANZAPINE 5 MG TABLET PO SCH ×2 (08:50→21:00)
[2019-09-23] MEDS: OXCARBAZEPINE 150 MG TABLET PO SCH ×4 (08:52→21:00)
[2019-09-23] MEDS: Z GUARD REMEDY PASTE 57 GM TUBE TOP SCH ×3 (08:53→21:14)
[2019-09-23] MEDS: VITAMINS A AND D OINT TP SCH ×2 (08:53→09:00)
[2019-09-23] MEDS: ZINC SULFATE 220 MG CAPSULE PO SCH ×2 (08:56→09:00)
[2019-09-23] MEDS: OLANZAPINE 10 MG VIAL IM PRN ×2 (12:25→21:09)
--- NOTE | 2019-09-23 14:54 | NUR ---
Patient will be transferred down stairs to [facility]-psych unit; patient not medication compliant; patient resting in bed; attending physician MD Dejesus agreed for patient to be taken off isolation along with clearance of isolation from infection control. Patient medically in stable condition
[2019-09-23 15:10] VITALS: BP 105/57
--- NOTE | 2019-09-23 15:45 | NUR ---
Transferred from overflow on 3rd floor via bed, 74 female, awake but confused. Place pt on a gerochair with max assist. Incontinent, generally weak on lower extremeties. Pt is verbally responsive and occasionally follows commands. No apparent distress noted.
[2019-09-23 20:18] VITALS: BP 100/63
--- NOTE | 2019-09-23 22:57 | NUR ---
Patient refused to take PO medication, offered x3 and explained what medication if for and what happens if she does not take it. Patient is confused, threw medication on the floor. Patient is under Riese protocol. IM zyprexa given. Patient asked to go to bed after 20 min and is now resting comfortably in bed with bed alarm on. Will continue to monitor.
[2019-09-24] MEDS: PANTOPRAZOLE SODIUM 40 MG TABLET.DR PO SCH (06:29)
--- NOTE | 2019-09-24 06:33 | NUR ---
Patient refused to take Protonix, explained benefits, but patient still refused. She however said she will take her Synthroid, but when I came back with the medication she said she did not want to take it anymore. Explained benefits and risk, but she still refused. She was more pleasant this morning and calm.
[2019-09-24] MEDS: LEVOTHYROXINE SODIUM 125 MCG TABLET PO SCH (06:36)
[2019-09-24 07:30] VITALS: BP 124/65
[2019-09-24] MEDS: PROTEIN SUPPLEMENT (PROSTAT) 30 ML LIQUID PO SCH ×3 (08:00→17:00)
[2019-09-24] MEDS: OLANZAPINE 5 MG TABLET PO SCH ×2 (08:28→21:00)
[2019-09-24] MEDS: FERROUS SULFATE 325 MG TABEC PO SCH (09:00)
[2019-09-24] MEDS: SODIUM CHLORIDE 1,000 MG TABLET PO SCH ×3 (09:00→17:00)
[2019-09-24] MEDS: MULTIVITAMINS,THERAPEUTIC TABLET PO SCH (09:00)
[2019-09-24] MEDS: OXCARBAZEPINE 150 MG TABLET PO SCH ×3 (09:00→21:00)
[2019-09-24] MEDS: CALCIUM CARB/VITAMIN D 500MG-200UNITS TABLET PO SCH (09:00)
[2019-09-24] MEDS: ASCORBIC ACID 500 MG TABLET PO SCH (09:00)
[2019-09-24] MEDS: CHOLECALCIFEROL 1,000 UNIT TABLET PO SCH (09:00)
[2019-09-24] MEDS: BETHANECHOL CHLORIDE 25 MG TABLET PO SCH ×4 (09:00→21:00)
[2019-09-24] MEDS: GABAPENTIN 100 MG CAPSULE PO SCH ×3 (09:00→17:00)
[2019-09-24] MEDS: VITAMINS A AND D OINT TP SCH (09:00)
[2019-09-24] MEDS: ZINC SULFATE 220 MG CAPSULE PO SCH (09:00)
[2019-09-24] MEDS: Z GUARD REMEDY PASTE 57 GM TUBE TOP SCH ×2 (09:11→21:09)
[2019-09-24 16:00] VITALS: BP 118/63
[2019-09-24 20:34] VITALS: BP 96/55
[2019-09-24] MEDS: OLANZAPINE 10 MG VIAL IM PRN (20:57)
--- NOTE | 2019-09-24 22:00 | NUR ---
received to care, sitting in her room, talking to self, initially pleasant upon approach. refused all medications, stating "anup doesnt want me to take them". reality orientation was attempted. pt remained very fixed in he rbeliefs, and continued to refuse. IM zyprexa was administered to the right gluteal region, per RIINGRID petition. as of 2200, she appears asleep in bed. no distress noted.
--- NOTE | 2019-09-25 06:00 | NUR ---
SLEPT 6.75 HOURS.
[2019-09-25] MEDS: LEVOTHYROXINE SODIUM 125 MCG TABLET PO SCH (06:36)
[2019-09-25] MEDS: PANTOPRAZOLE SODIUM 40 MG TABLET.DR PO SCH (06:36)
--- NOTE | 2019-09-25 07:01 | NUR ---
REFUSED AM MEDS, AND SHOWER.
[2019-09-25 07:30] VITALS: BP 91/58
[2019-09-25] MEDS: PROTEIN SUPPLEMENT (PROSTAT) 30 ML LIQUID PO SCH ×3 (08:00→17:00)
[2019-09-25] MEDS: FERROUS SULFATE 325 MG TABEC PO SCH (09:00)
[2019-09-25] MEDS: Z GUARD REMEDY PASTE 57 GM TUBE TOP SCH ×2 (09:00→20:59)
[2019-09-25] MEDS: OXCARBAZEPINE 150 MG TABLET PO SCH ×3 (09:00→20:59)
[2019-09-25] MEDS: OLANZAPINE 5 MG TABLET PO SCH ×2 (09:00→20:59)
[2019-09-25] MEDS: CHOLECALCIFEROL 1,000 UNIT TABLET PO SCH (09:00)
[2019-09-25] MEDS: MULTIVITAMINS,THERAPEUTIC TABLET PO SCH (09:00)
[2019-09-25] MEDS: CALCIUM CARB/VITAMIN D 500MG-200UNITS TABLET PO SCH (09:00)
[2019-09-25] MEDS: BETHANECHOL CHLORIDE 25 MG TABLET PO SCH ×4 (09:00→20:59)
[2019-09-25] MEDS: ASCORBIC ACID 500 MG TABLET PO SCH (09:00)
[2019-09-25] MEDS: GABAPENTIN 100 MG CAPSULE PO SCH ×3 (09:00→17:00)
[2019-09-25] MEDS: ZINC SULFATE 220 MG CAPSULE PO SCH (09:00)
[2019-09-25] MEDS: SODIUM CHLORIDE 1,000 MG TABLET PO SCH ×3 (09:00→17:00)
[2019-09-25] MEDS: VITAMINS A AND D OINT TP SCH (09:00)
[2019-09-25] MEDS: OLANZAPINE 10 MG VIAL IM PRN ×2 (09:43→21:00)
[2019-09-25 16:00] VITALS: BP 103/61
--- NOTE | 2019-09-25 20:00 | NUR ---
Patient received into care, asleep in bed, but arouses easily to name. Patient has no complaints of pain or discomfort at this time. All safety and fall precaution measures are in place. Will continue to monitor.
[2019-09-25 20:42] VITALS: BP 101/60
--- NOTE | 2019-09-25 21:18 | NUR ---
Patient refused all prescribed HS medications, including po zyprexa. Per MD order, IM zyprexa given
[2019-09-26] MEDS: PANTOPRAZOLE SODIUM 40 MG TABLET.DR PO SCH (06:18)
[2019-09-26] MEDS: LEVOTHYROXINE SODIUM 125 MCG TABLET PO SCH (06:19)
--- NOTE | 2019-09-26 07:03 | NUR ---
Patient slept intermittently throughout night for a total of 9 hours. Patient was noncompliant with HS of medications and required an IM injection of zyprexa. Patient was noncompliant with AM medications. All nursing needs were met promptly. Patient is warm, dry and resting comfortably in bed.
[2019-09-26] MEDS: PROTEIN SUPPLEMENT (PROSTAT) 30 ML LIQUID PO SCH ×3 (08:00→17:00)
[2019-09-26] MEDS ORDERED: OLANZAPINE 10 MG VIAL IM PRN (09:00)
[2019-09-26] MEDS: CHOLECALCIFEROL 1,000 UNIT TABLET PO SCH (09:49)
[2019-09-26] MEDS: CALCIUM CARB/VITAMIN D 500MG-200UNITS TABLET PO SCH (09:49)
[2019-09-26] MEDS: OXCARBAZEPINE 150 MG TABLET PO SCH ×3 (09:50→21:00)
[2019-09-26] MEDS: GABAPENTIN 100 MG CAPSULE PO SCH ×3 (09:50→17:53)
[2019-09-26] MEDS: BETHANECHOL CHLORIDE 25 MG TABLET PO SCH ×4 (09:50→21:00)
[2019-09-26] MEDS: SODIUM CHLORIDE 1,000 MG TABLET PO SCH ×3 (09:50→17:53)
[2019-09-26] MEDS: MULTIVITAMINS,THERAPEUTIC TABLET PO SCH (09:50)
[2019-09-26] MEDS: OLANZAPINE 5 MG TABLET PO SCH ×2 (09:51→21:41)
[2019-09-26] MEDS: ZINC SULFATE 220 MG CAPSULE PO SCH (09:51)
[2019-09-26] MEDS: FERROUS SULFATE 325 MG TABEC PO SCH (09:51)
[2019-09-26] MEDS: ASCORBIC ACID 500 MG TABLET PO SCH (09:51)
[2019-09-26] MEDS: Z GUARD REMEDY PASTE 57 GM TUBE TOP SCH ×2 (09:56→21:46)
[2019-09-26] MEDS: VITAMINS A AND D OINT TP SCH (13:35)
[2019-09-26 16:44] VITALS: BP 106/54
[2019-09-26 20:27] VITALS: BP 113/59
--- NOTE | 2019-09-26 23:26 | NUR ---
Patient said she would try to take her PO medications in 30 minutes. A few minutes later she started becoming agitated and started yelling at another nurse saying she was not going to take her medication, I got her IM zyprexa out of the Pyxis to administer, but then she started to say she would take her PO medication. Patient took the medication, made sure she swallowed the pills and is now resting in bed. Zyprexa vial returned. Will continue to monitor.
[2019-09-27] MEDS: PANTOPRAZOLE SODIUM 40 MG TABLET.DR PO SCH (06:37)
[2019-09-27] MEDS: LEVOTHYROXINE SODIUM 125 MCG TABLET PO SCH (06:37)
--- NOTE | 2019-09-27 06:48 | NUR ---
Patient refused morning medication, offered x2, explained benefits and risks of not taking it, but patient still refused. Will endorse to next shift.
[2019-09-27 08:00] VITALS: BP 107/63
[2019-09-27] MEDS: OLANZAPINE 5 MG TABLET PO SCH ×2 (08:57→20:13)
[2019-09-27] MEDS: ZINC SULFATE 220 MG CAPSULE PO SCH (08:57)
[2019-09-27] MEDS: OXCARBAZEPINE 150 MG TABLET PO SCH ×3 (08:57→20:13)
[2019-09-27] MEDS: CALCIUM CARB/VITAMIN D 500MG-200UNITS TABLET PO SCH (08:58)
[2019-09-27] MEDS: FERROUS SULFATE 325 MG TABEC PO SCH (08:58)
[2019-09-27] MEDS: BETHANECHOL CHLORIDE 25 MG TABLET PO SCH ×4 (08:58→20:13)
[2019-09-27] MEDS: GABAPENTIN 100 MG CAPSULE PO SCH ×3 (08:58→17:12)
[2019-09-27] MEDS: MULTIVITAMINS,THERAPEUTIC TABLET PO SCH (08:58)
[2019-09-27] MEDS: SODIUM CHLORIDE 1,000 MG TABLET PO SCH ×3 (08:58→17:12)
[2019-09-27] MEDS: PROTEIN SUPPLEMENT (PROSTAT) 30 ML LIQUID PO SCH ×3 (08:59→17:12)
[2019-09-27] MEDS: VITAMINS A AND D OINT TP SCH (09:00)
[2019-09-27] MEDS: Z GUARD REMEDY PASTE 57 GM TUBE TOP SCH ×2 (09:00→21:00)
[2019-09-27] MEDS: CHOLECALCIFEROL 1,000 UNIT TABLET PO SCH (09:04)
[2019-09-27] MEDS: ASCORBIC ACID 500 MG TABLET PO SCH (09:04)
[2019-09-27 16:10] VITALS: BP 115/68
[2019-09-27 20:12] VITALS: BP 103/44
--- NOTE | 2019-09-28 06:00 | NUR ---
Patient slept on and off for 8 hours last night. Incontinent of urine x2. Patient removed diaper and all clothing then urinated in the bed. Am care given. Patient became belligerent when offered a shower, and refused to take am medications, will attempt to give again later. Patient resting in bed with bed alarm on at this time.
[2019-09-28] MEDS: PANTOPRAZOLE SODIUM 40 MG TABLET.DR PO SCH (06:14)
[2019-09-28] MEDS: LEVOTHYROXINE SODIUM 125 MCG TABLET PO SCH (06:15)
[2019-09-28] MEDS: PROTEIN SUPPLEMENT (PROSTAT) 30 ML LIQUID PO SCH ×3 (08:00→16:54)
[2019-09-28 08:09] VITALS: BP 100/58
[2019-09-28] MEDS: CALCIUM CARB/VITAMIN D 500MG-200UNITS TABLET PO SCH (08:31)
[2019-09-28] MEDS: MULTIVITAMINS,THERAPEUTIC TABLET PO SCH (08:31)
[2019-09-28] MEDS: GABAPENTIN 100 MG CAPSULE PO SCH ×3 (08:31→16:54)
[2019-09-28] MEDS: OXCARBAZEPINE 150 MG TABLET PO SCH ×3 (08:31→21:00)
[2019-09-28] MEDS: BETHANECHOL CHLORIDE 25 MG TABLET PO SCH ×4 (08:31→21:00)
[2019-09-28] MEDS: SODIUM CHLORIDE 1,000 MG TABLET PO SCH ×3 (08:31→16:54)
[2019-09-28] MEDS: FERROUS SULFATE 325 MG TABEC PO SCH (08:31)
[2019-09-28] MEDS: ASCORBIC ACID 500 MG TABLET PO SCH (08:32)
[2019-09-28] MEDS: VITAMINS A AND D OINT TP SCH (08:32)
[2019-09-28] MEDS: CHOLECALCIFEROL 1,000 UNIT TABLET PO SCH (08:32)
[2019-09-28] MEDS: ZINC SULFATE 220 MG CAPSULE PO SCH (08:32)
[2019-09-28] MEDS: OLANZAPINE 5 MG TABLET PO SCH ×2 (08:32→21:00)
[2019-09-28] MEDS: Z GUARD REMEDY PASTE 57 GM TUBE TOP SCH ×2 (08:32→21:00)
[2019-09-28 16:16] VITALS: BP 95/52
[2019-09-28 20:00] VITALS: BP 89/54
[2019-09-28] MEDS: OLANZAPINE 10 MG VIAL IM PRN (22:46)
--- NOTE | 2019-09-28 23:45 | NUR ---
Patient refused to take oral medications per evening nurse and received a shot of Zyprexa. This was after the patient went into the day room, sat on the floor yelling "The lord is behind me. Shut up" over and over. When staff tried to talk to patient and help her to her room the patient laid on the ground and refused help, still yelling. A few minutes later the patient proceeded to urinate and defecate on self. Eventually getting up on her own and going into the bed.
[2019-09-29] MEDS: PANTOPRAZOLE SODIUM 40 MG TABLET.DR PO SCH (06:19)
[2019-09-29] MEDS: LEVOTHYROXINE SODIUM 125 MCG TABLET PO SCH (06:19)
[2019-09-29 07:30] VITALS: BP 105/60
[2019-09-29] MEDS: CHOLECALCIFEROL 1,000 UNIT TABLET PO SCH ×2 (09:00→09:06)
[2019-09-29] MEDS: ASCORBIC ACID 500 MG TABLET PO SCH ×2 (09:00→09:06)
[2019-09-29] MEDS: SODIUM CHLORIDE 1,000 MG TABLET PO SCH ×4 (09:00→17:00)
[2019-09-29] MEDS: FERROUS SULFATE 325 MG TABEC PO SCH ×2 (09:00→09:04)
[2019-09-29] MEDS: BETHANECHOL CHLORIDE 25 MG TABLET PO SCH ×5 (09:00→20:00)
[2019-09-29] MEDS: ZINC SULFATE 220 MG CAPSULE PO SCH ×2 (09:00→09:06)
[2019-09-29] MEDS: GABAPENTIN 100 MG CAPSULE PO SCH ×4 (09:00→17:00)
[2019-09-29] MEDS: MULTIVITAMINS,THERAPEUTIC TABLET PO SCH ×2 (09:00→09:11)
[2019-09-29] MEDS: OXCARBAZEPINE 150 MG TABLET PO SCH ×5 (09:00→20:00)
[2019-09-29] MEDS: CALCIUM CARB/VITAMIN D 500MG-200UNITS TABLET PO SCH ×2 (09:00→09:05)
[2019-09-29] MEDS: OLANZAPINE 5 MG TABLET PO SCH ×3 (09:00→21:01)
[2019-09-29] MEDS: PROTEIN SUPPLEMENT (PROSTAT) 30 ML LIQUID PO SCH ×3 (09:07→17:00)
[2019-09-29] MEDS: Z GUARD REMEDY PASTE 57 GM TUBE TOP SCH ×2 (09:07→21:01)
[2019-09-29] MEDS: VITAMINS A AND D OINT TP SCH (09:11)
--- NOTE | 2019-09-29 09:50 | NUR ---
Patient was disheveled, quietly eating breakfast. Calm when approached and agreed to take medication but when handed to her, she threw it away. She became angry and agitated, rambling angry words. Medication was crushed and attempted to give with pudding but still refused. Will try again later
[2019-09-29] MEDS: OLANZAPINE 10 MG VIAL IM PRN (10:59)
--- NOTE | 2019-09-29 10:59 | NUR ---
Attempted again to give oral medications but still refused. Zyprexa IM given as ordered, assisted by 2 RNs and SECURITY PROJECT MANAGER.
--- NOTE | 2019-09-29 11:32 | NUR ---
FIREARMS REPORT ([employer]): Business Job Titles completed and submitted a [employer] firearms report for 5250 grave disability certification. A copy of report has been placed in patient chart.
--- NOTE | 2019-09-29 11:33 | NUR ---
Patient sleeping after, comfortable, not in distress
--- NOTE | 2019-09-29 15:30 | NUR ---
Patient laying on the hallway floor. Redirected and brought to the dining area and laying on floor again. Redirected and assisted to her room, resting on her bed
[2019-09-29 16:08] VITALS: BP 94/55
--- NOTE | 2019-09-29 18:20 | NUR ---
Dr. Castro seen patient, informed of patient's behavior
[2019-09-29 20:31] VITALS: BP 94/56
[2019-09-30] MEDS: PANTOPRAZOLE SODIUM 40 MG TABLET.DR PO SCH (06:00)
[2019-09-30] MEDS: LEVOTHYROXINE SODIUM 125 MCG TABLET PO SCH (06:00)
[2019-09-30 07:30] VITALS: BP 124/73
[2019-09-30] MEDS: PROTEIN SUPPLEMENT (PROSTAT) 30 ML LIQUID PO SCH ×3 (08:00→17:00)
[2019-09-30] MEDS: OLANZAPINE 5 MG TABLET PO SCH ×3 (08:18→20:42)
[2019-09-30] MEDS: FERROUS SULFATE 325 MG TABEC PO SCH (08:48)
[2019-09-30] MEDS: SODIUM CHLORIDE 1,000 MG TABLET PO SCH ×3 (08:48→17:00)
[2019-09-30] MEDS: GABAPENTIN 100 MG CAPSULE PO SCH ×3 (08:49→17:00)
[2019-09-30] MEDS: MULTIVITAMINS,THERAPEUTIC TABLET PO SCH (08:49)
[2019-09-30] MEDS: CALCIUM CARB/VITAMIN D 500MG-200UNITS TABLET PO SCH (08:49)
[2019-09-30] MEDS: OXCARBAZEPINE 150 MG TABLET PO SCH ×4 (08:58→20:41)
[2019-09-30] MEDS: ASCORBIC ACID 500 MG TABLET PO SCH (09:00)
[2019-09-30] MEDS: VITAMINS A AND D OINT TP SCH (09:00)
[2019-09-30] MEDS: BETHANECHOL CHLORIDE 25 MG TABLET PO SCH ×4 (09:00→20:39)
[2019-09-30] MEDS: ZINC SULFATE 220 MG CAPSULE PO SCH (09:00)
[2019-09-30] MEDS: Z GUARD REMEDY PASTE 57 GM TUBE TOP SCH ×2 (09:00→20:42)
[2019-09-30] MEDS: CHOLECALCIFEROL 1,000 UNIT TABLET PO SCH (09:00)
--- NOTE | 2019-09-30 09:00 | NUR ---
Pt only wanted to take her zyprexa PO. Pt refused the other medications. Pt unpredictable on her behavior. Pt will be cooperative at time then would yell at nursing without any reason.
--- NOTE | 2019-09-30 15:07 | NUR ---
Discharge Planning RAHEEL Note: RAHEEL spoke with [facility] (admissions: [facility] cell [phone]) who inquired about when patient will be returning back to facility and that patient will be accepted back at any time.
[2019-09-30 16:06] VITALS: BP 101/48
--- NOTE | 2019-09-30 18:37 | NUR ---
Pt refused to take any further medications throughout the day. Pt threw the pills on the floor. Pt yelling stating that she doesn't want to take any more pills.
[2019-09-30] MEDS: OLANZAPINE 10 MG VIAL IM PRN (21:07)
[2019-09-30 21:10] VITALS: BP 106/57
--- NOTE | 2019-09-30 23:00 | NUR ---
Patient refused to take medications PO, Zyprexa 10 mg IM given per order. Patient tolerated it well. MD aware of the patient refusing medications. No distress noted with patient at this time.
--- NOTE | 2019-10-01 05:56 | NUR ---
Patient slept 8 hours last night. Incontinent of urine. Refusing to take am medications. No yelling noted so far this am, continuing to monitor.
[2019-10-01] MEDS: PANTOPRAZOLE SODIUM 40 MG TABLET.DR PO SCH (07:00)
[2019-10-01] MEDS: LEVOTHYROXINE SODIUM 125 MCG TABLET PO SCH (07:00)
[2019-10-01 07:30] VITALS: BP 116/74
[2019-10-01] MEDS: PROTEIN SUPPLEMENT (PROSTAT) 30 ML LIQUID PO SCH ×3 (08:00→17:00)
[2019-10-01] MEDS: OXCARBAZEPINE 150 MG TABLET PO SCH ×4 (08:30→20:14)
[2019-10-01] MEDS: OLANZAPINE 5 MG TABLET PO SCH ×3 (08:30→20:15)
[2019-10-01] MEDS: GABAPENTIN 100 MG CAPSULE PO SCH ×4 (08:30→17:00)
[2019-10-01] MEDS: MULTIVITAMINS,THERAPEUTIC TABLET PO SCH (09:00)
[2019-10-01] MEDS: CALCIUM CARB/VITAMIN D 500MG-200UNITS TABLET PO SCH (09:00)
[2019-10-01] MEDS: CHOLECALCIFEROL 1,000 UNIT TABLET PO SCH (09:00)
[2019-10-01] MEDS: VITAMINS A AND D OINT TP SCH (09:00)
[2019-10-01] MEDS: BETHANECHOL CHLORIDE 25 MG TABLET PO SCH ×4 (09:00→20:14)
[2019-10-01] MEDS: SODIUM CHLORIDE 1,000 MG TABLET PO SCH ×3 (09:00→17:00)
[2019-10-01] MEDS: Z GUARD REMEDY PASTE 57 GM TUBE TOP SCH ×2 (09:00→20:15)
[2019-10-01] MEDS: ASCORBIC ACID 500 MG TABLET PO SCH (09:00)
[2019-10-01] MEDS: ZINC SULFATE 220 MG CAPSULE PO SCH (09:00)
[2019-10-01] MEDS: FERROUS SULFATE 325 MG TABEC PO SCH (09:27)
[2019-10-01] MEDS: OLANZAPINE 10 MG VIAL IM PRN ×2 (09:32→20:10)
[2019-10-01 16:30] VITALS: BP 99/56
--- NOTE | 2019-10-01 17:13 | NUR ---
updated about patient status
[2019-10-01 19:58] VITALS: BP 117/73
--- NOTE | 2019-10-01 20:40 | NUR ---
Received patient in bed, isolated, non cooperative and guarded. Refused her night medication. PRN IM medication was given. will remain in a psych setting for further evaluation and treatment.
[2019-10-02] MEDS: PANTOPRAZOLE SODIUM 40 MG TABLET.DR PO SCH (06:04)
[2019-10-02] MEDS: LEVOTHYROXINE SODIUM 125 MCG TABLET PO SCH (06:04)
--- NOTE | 2019-10-02 06:27 | NUR ---
Patient slept for 6 hrs and 45 mins last night. Patient refused medication. Woke up one time last night screaming but redirected and patient went back to sleep.
[2019-10-02 07:30] VITALS: BP 131/78
[2019-10-02] MEDS: PROTEIN SUPPLEMENT (PROSTAT) 30 ML LIQUID PO SCH ×3 (08:00→16:28)
[2019-10-02] MEDS: SODIUM CHLORIDE 1,000 MG TABLET PO SCH ×3 (08:40→16:28)
[2019-10-02] MEDS: FERROUS SULFATE 325 MG TABEC PO SCH (08:40)
[2019-10-02] MEDS: OXCARBAZEPINE 150 MG TABLET PO SCH ×3 (08:41→20:42)
[2019-10-02] MEDS: CHOLECALCIFEROL 1,000 UNIT TABLET PO SCH (08:41)
[2019-10-02] MEDS: BETHANECHOL CHLORIDE 25 MG TABLET PO SCH ×4 (08:41→20:42)
[2019-10-02] MEDS: GABAPENTIN 100 MG CAPSULE PO SCH ×3 (08:41→16:28)
[2019-10-02] MEDS: MULTIVITAMINS,THERAPEUTIC TABLET PO SCH (08:41)
[2019-10-02] MEDS: ASCORBIC ACID 500 MG TABLET PO SCH (08:41)
[2019-10-02] MEDS: VITAMINS A AND D OINT TP SCH (08:41)
[2019-10-02] MEDS: ZINC SULFATE 220 MG CAPSULE PO SCH (08:41)
[2019-10-02] MEDS: CALCIUM CARB/VITAMIN D 500MG-200UNITS TABLET PO SCH (08:41)
[2019-10-02] MEDS: OLANZAPINE 5 MG TABLET PO SCH ×2 (08:41→20:42)
[2019-10-02] MEDS: Z GUARD REMEDY PASTE 57 GM TUBE TOP SCH ×2 (08:41→20:42)
[2019-10-02] MEDS: OLANZAPINE 10 MG VIAL IM PRN ×2 (09:01→20:42)
[2019-10-02 16:00] VITALS: BP 115/75
--- NOTE | 2019-10-03 06:29 | NUR ---
PT SLEPT 7.45 H. PT IN NO ACUTE DISTRESS. PT REFUSED HER MEDICATION AND WAS GIVEN ZYPREXA IM AT 2042H.. PT HAVE EPISODES OF CRAWLING INSIDE THE ROOM AND SCREAMING. PT NEEDS REORIENTATION. SAFETY AND COMFORT PROVIDED. WILL CONTINUE TO MONITOR.
[2019-10-03] MEDS: LEVOTHYROXINE SODIUM 125 MCG TABLET PO SCH (06:33)
[2019-10-03] MEDS: PANTOPRAZOLE SODIUM 40 MG TABLET.DR PO SCH (06:33)
[2019-10-03 07:30] VITALS: BP 130/76
[2019-10-03] MEDS: PROTEIN SUPPLEMENT (PROSTAT) 30 ML LIQUID PO SCH ×3 (08:00→16:14)
[2019-10-03] MEDS: FERROUS SULFATE 325 MG TABEC PO SCH (08:32)
[2019-10-03] MEDS: SODIUM CHLORIDE 1,000 MG TABLET PO SCH ×3 (08:32→16:13)
[2019-10-03] MEDS: GABAPENTIN 100 MG CAPSULE PO SCH ×3 (08:32→16:13)
[2019-10-03] MEDS: MULTIVITAMINS,THERAPEUTIC TABLET PO SCH (08:33)
[2019-10-03] MEDS: ASCORBIC ACID 500 MG TABLET PO SCH (08:33)
[2019-10-03] MEDS: OLANZAPINE 5 MG TABLET PO SCH (08:33)
[2019-10-03] MEDS: CALCIUM CARB/VITAMIN D 500MG-200UNITS TABLET PO SCH (08:33)
[2019-10-03] MEDS: BETHANECHOL CHLORIDE 25 MG TABLET PO SCH ×5 (08:33→20:29)
[2019-10-03] MEDS: Z GUARD REMEDY PASTE 57 GM TUBE TOP SCH ×2 (08:33→20:21)
[2019-10-03] MEDS: ZINC SULFATE 220 MG CAPSULE PO SCH (08:33)
[2019-10-03] MEDS: VITAMINS A AND D OINT TP SCH (08:33)
[2019-10-03] MEDS: CHOLECALCIFEROL 1,000 UNIT TABLET PO SCH (08:33)
[2019-10-03] MEDS: OXCARBAZEPINE 150 MG TABLET PO SCH ×4 (08:33→20:29)
[2019-10-03] MEDS: OLANZAPINE 10 MG VIAL IM PRN (08:34)
[2019-10-03 16:00] VITALS: BP 104/61
[2019-10-03] MEDS: HALOPERIDOL 2 MG TABLET PO SCH (16:13)
[2019-10-03] MEDS: HALOPERIDOL LACTATE 5 MG/1 ML VIAL IM PRN (16:18)
[2019-10-03 21:17] VITALS: BP 106/60
[2019-10-04] MEDS: LEVOTHYROXINE SODIUM 125 MCG TABLET PO SCH ×2 (06:26→08:47)
[2019-10-04] MEDS: PANTOPRAZOLE SODIUM 40 MG TABLET.DR PO SCH ×2 (06:26→08:48)
--- NOTE | 2019-10-04 06:29 | NUR ---
Patient slept a total of 8.15 hours. Attended all needs. Ensured safety and comfort. Patient still refusing oral medications. Patient agreed to shower this morning. Will endorse accordingly.
[2019-10-04 07:30] VITALS: BP 127/73
[2019-10-04] MEDS: PROTEIN SUPPLEMENT (PROSTAT) 30 ML LIQUID PO SCH ×3 (08:45→17:20)
[2019-10-04] MEDS: VITAMINS A AND D OINT TP SCH (08:49)
[2019-10-04] MEDS: ASCORBIC ACID 500 MG TABLET PO SCH (08:52)
[2019-10-04] MEDS: ZINC SULFATE 220 MG CAPSULE PO SCH (08:52)
[2019-10-04] MEDS: BETHANECHOL CHLORIDE 25 MG TABLET PO SCH ×4 (08:52→20:54)
[2019-10-04] MEDS: CHOLECALCIFEROL 1,000 UNIT TABLET PO SCH (08:52)
[2019-10-04] MEDS: GABAPENTIN 100 MG CAPSULE PO SCH ×3 (08:53→17:00)
[2019-10-04] MEDS: MULTIVITAMINS,THERAPEUTIC TABLET PO SCH (08:53)
[2019-10-04] MEDS: CALCIUM CARB/VITAMIN D 500MG-200UNITS TABLET PO SCH (08:53)
[2019-10-04] MEDS: SODIUM CHLORIDE 1,000 MG TABLET PO SCH ×3 (08:53→17:00)
[2019-10-04] MEDS: OXCARBAZEPINE 150 MG TABLET PO SCH ×3 (08:53→20:54)
[2019-10-04] MEDS: FERROUS SULFATE 325 MG TABEC PO SCH (08:54)
[2019-10-04] MEDS: HALOPERIDOL 2 MG TABLET PO SCH ×3 (08:54→20:53)
[2019-10-04] MEDS: HALOPERIDOL LACTATE 5 MG/1 ML VIAL IM PRN ×3 (09:01→20:55)
[2019-10-04] MEDS: Z GUARD REMEDY PASTE 57 GM TUBE TOP SCH ×2 (09:11→20:54)
--- NOTE | 2019-10-04 09:20 | NUR ---
0745 Patient running in hallway towards the main door when staff open the door for kitchen personnel who bring to breakfast meal cart. Try to redirect, patient run back to dinning room yelling.. Also offered 0900 am medications, patient strongly refused despite of the education provided . Patient is Riesed, Haldol 2 mg im administered as ordered.
[2019-10-04 16:02] VITALS: BP 125/69
[2019-10-04 20:00] VITALS: BP 119/71
[2019-10-05 07:30] VITALS: BP 123/75
[2019-10-05] MEDS: PROTEIN SUPPLEMENT (PROSTAT) 30 ML LIQUID PO SCH ×3 (08:00→17:50)
[2019-10-05] MEDS: Z GUARD REMEDY PASTE 57 GM TUBE TOP SCH ×2 (09:00→20:03)
[2019-10-05] MEDS: FERROUS SULFATE 325 MG TABEC PO SCH (09:00)
[2019-10-05] MEDS: OXCARBAZEPINE 150 MG TABLET PO SCH ×3 (09:00→20:00)
[2019-10-05] MEDS: ASCORBIC ACID 500 MG TABLET PO SCH (09:00)
[2019-10-05] MEDS: HALOPERIDOL 2 MG TABLET PO SCH ×2 (09:00→12:57)
[2019-10-05] MEDS: CALCIUM CARB/VITAMIN D 500MG-200UNITS TABLET PO SCH (09:00)
[2019-10-05] MEDS: MULTIVITAMINS,THERAPEUTIC TABLET PO SCH (09:00)
[2019-10-05] MEDS: GABAPENTIN 100 MG CAPSULE PO SCH ×3 (09:00→17:22)
[2019-10-05] MEDS: SODIUM CHLORIDE 1,000 MG TABLET PO SCH ×3 (09:00→17:21)
[2019-10-05] MEDS: BETHANECHOL CHLORIDE 25 MG TABLET PO SCH ×4 (09:00→20:01)
[2019-10-05] MEDS: CHOLECALCIFEROL 1,000 UNIT TABLET PO SCH (09:00)
[2019-10-05] MEDS: ZINC SULFATE 220 MG CAPSULE PO SCH (09:00)
[2019-10-05] MEDS: VITAMINS A AND D OINT TP SCH (09:00)
[2019-10-05] MEDS: HALOPERIDOL LACTATE 5 MG/1 ML VIAL IM PRN (09:29)
[2019-10-05 16:04] VITALS: BP 119/62
[2019-10-05] MEDS: HALOPERIDOL 5 MG TABLET PO SCH (20:00)
[2019-10-05 20:28] VITALS: BP 111/58
[2019-10-05] MEDS ORDERED: HALOPERIDOL LACTATE 5 MG/1 ML VIAL IM PRN (21:00)
[2019-10-05] MEDS ORDERED: HALOPERIDOL 2 MG TABLET PO SCH (21:00)
--- NOTE | 2019-10-06 05:49 | NUR ---
Patient slept 6.00 hours. Compliant with PO medications last night and this morning. No IM injections given. Patient up at one point during the night, at the unit door pounding on it, calling out for the police. Patient remains incontinent and had a full shower this am. No acute distress noted, minimal yelling last night and easily redirected.
[2019-10-06] MEDS: LEVOTHYROXINE SODIUM 125 MCG TABLET PO SCH (06:00)
[2019-10-06] MEDS: PANTOPRAZOLE SODIUM 40 MG TABLET.DR PO SCH (06:01)
[2019-10-06 07:30] VITALS: BP 122/67
[2019-10-06] MEDS: PROTEIN SUPPLEMENT (PROSTAT) 30 ML LIQUID PO SCH ×3 (08:00→17:00)
[2019-10-06] MEDS: HALOPERIDOL 5 MG TABLET PO SCH ×3 (08:13→20:28)
[2019-10-06] MEDS: GABAPENTIN 100 MG CAPSULE PO SCH ×3 (08:13→16:34)
[2019-10-06] MEDS: FERROUS SULFATE 325 MG TABEC PO SCH (08:15)
[2019-10-06] MEDS: MULTIVITAMINS,THERAPEUTIC TABLET PO SCH (08:17)
[2019-10-06] MEDS: ASCORBIC ACID 500 MG TABLET PO SCH (08:17)
[2019-10-06] MEDS: CALCIUM CARB/VITAMIN D 500MG-200UNITS TABLET PO SCH (08:17)
[2019-10-06] MEDS: ZINC SULFATE 220 MG CAPSULE PO SCH (08:18)
[2019-10-06] MEDS: CHOLECALCIFEROL 1,000 UNIT TABLET PO SCH (09:00)
[2019-10-06] MEDS: OXCARBAZEPINE 150 MG TABLET PO SCH ×3 (09:00→20:28)
[2019-10-06] MEDS: Z GUARD REMEDY PASTE 57 GM TUBE TOP SCH ×2 (09:00→20:25)
[2019-10-06] MEDS: SODIUM CHLORIDE 1,000 MG TABLET PO SCH ×3 (09:00→16:35)
[2019-10-06] MEDS: VITAMINS A AND D OINT TP SCH (09:00)
[2019-10-06] MEDS: BETHANECHOL CHLORIDE 25 MG TABLET PO SCH ×4 (09:00→20:28)
[2019-10-06 15:37] VITALS: BP 127/70
--- NOTE | 2019-10-06 18:32 | NUR ---
patient compliant most po medication, no aggressive and agitated noted. stay in bed most of shift.
[2019-10-06 20:00] VITALS: BP 99/57
[2019-10-07] MEDS: LEVOTHYROXINE SODIUM 125 MCG TABLET PO SCH ×2 (06:30→07:00)
[2019-10-07] MEDS: PANTOPRAZOLE SODIUM 40 MG TABLET.DR PO SCH ×2 (06:30→07:00)
[2019-10-07 07:30] VITALS: BP 133/67
[2019-10-07] MEDS: PROTEIN SUPPLEMENT (PROSTAT) 30 ML LIQUID PO SCH ×3 (08:00→17:00)
[2019-10-07] MEDS: HALOPERIDOL 5 MG TABLET PO SCH ×4 (08:33→21:00)
[2019-10-07] MEDS: GABAPENTIN 100 MG CAPSULE PO SCH ×3 (08:34→17:00)
[2019-10-07] MEDS: SODIUM CHLORIDE 1,000 MG TABLET PO SCH ×3 (08:38→17:00)
[2019-10-07] MEDS: FERROUS SULFATE 325 MG TABEC PO SCH (08:38)
[2019-10-07] MEDS: CALCIUM CARB/VITAMIN D 500MG-200UNITS TABLET PO SCH (08:38)
[2019-10-07] MEDS: ASCORBIC ACID 500 MG TABLET PO SCH (08:39)
[2019-10-07] MEDS: CHOLECALCIFEROL 1,000 UNIT TABLET PO SCH (08:39)
[2019-10-07] MEDS: ZINC SULFATE 220 MG CAPSULE PO SCH (08:39)
[2019-10-07] MEDS: OXCARBAZEPINE 150 MG TABLET PO SCH ×4 (08:39→21:00)
[2019-10-07] MEDS: MULTIVITAMINS,THERAPEUTIC TABLET PO SCH (08:39)
[2019-10-07] MEDS: BETHANECHOL CHLORIDE 25 MG TABLET PO SCH ×5 (08:39→21:00)
[2019-10-07] MEDS: VITAMINS A AND D OINT TP SCH (08:40)
[2019-10-07] MEDS: Z GUARD REMEDY PASTE 57 GM TUBE TOP SCH ×2 (08:40→21:06)
[2019-10-07 16:29] VITALS: BP 113/55
[2019-10-07 20:00] VITALS: BP 107/52
--- NOTE | 2019-10-07 20:15 | NUR ---
Received patient asleep but arousable, however patient appeared to be more sedated than usual. Noted blood pressure also on the lower side, oral medications not given. Will continue to monitor.
[2019-10-08] MEDS: PANTOPRAZOLE SODIUM 40 MG TABLET.DR PO SCH (06:15)
[2019-10-08] MEDS: LEVOTHYROXINE SODIUM 125 MCG TABLET PO SCH (06:15)
--- NOTE | 2019-10-08 06:29 | NUR ---
Patient slept a total of 7.15 hours. Attended all needs. Ensured safety and comfort. Patient more awake this morning. Will endorse accordingly.
[2019-10-08] MEDS: PROTEIN SUPPLEMENT (PROSTAT) 30 ML LIQUID PO SCH ×2 (08:00→12:00)
[2019-10-08 08:02] VITALS: BP 128/73
[2019-10-08] MEDS: OXCARBAZEPINE 150 MG TABLET PO SCH ×2 (08:06→12:51)
[2019-10-08] MEDS: HALOPERIDOL 5 MG TABLET PO SCH ×2 (08:06→12:51)
--- NOTE | 2019-10-08 08:11 | NUR ---
Social Work Note/Discharge Note: Patient will be discharged to [facility] [[address] [place] [address]; ). Please arrange Ambulance transportation for the patient at 3:00pm. Spoke with Cristine [Admin Board Catcher] at the facility who states they are ready to accept the patient today. Patient is alert and oriented x3, denies suicidal or homicidal ideation, and is aware and agreeable with discharge plans. Patients sonHomar ([phone]) is made aware and agreeable with discharge plans. The patient is unable to provide for self-care at this time, however, is willing to accept care at the facility. The patient presents with calm mood and euthymic affect during the time of discharge. Patient will follow-up at the facility with Dr. Castro (Psychiatrist) and Dr. David ([employer]).
[2019-10-08] MEDS: CHOLECALCIFEROL 1,000 UNIT TABLET PO SCH (09:00)
[2019-10-08] MEDS: ZINC SULFATE 220 MG CAPSULE PO SCH (09:00)
[2019-10-08] MEDS: BETHANECHOL CHLORIDE 25 MG TABLET PO SCH ×2 (09:00→12:52)
[2019-10-08] MEDS: SODIUM CHLORIDE 1,000 MG TABLET PO SCH ×2 (09:00→12:51)
[2019-10-08] MEDS: ASCORBIC ACID 500 MG TABLET PO SCH (09:00)
[2019-10-08] MEDS: FERROUS SULFATE 325 MG TABEC PO SCH (09:00)
[2019-10-08] MEDS: MULTIVITAMINS,THERAPEUTIC TABLET PO SCH (09:00)
[2019-10-08] MEDS: VITAMINS A AND D OINT TP SCH (09:00)
[2019-10-08] MEDS: CALCIUM CARB/VITAMIN D 500MG-200UNITS TABLET PO SCH (09:00)
[2019-10-08] MEDS: GABAPENTIN 100 MG CAPSULE PO SCH ×2 (09:00→12:52)
[2019-10-08] MEDS: Z GUARD REMEDY PASTE 57 GM TUBE TOP SCH (09:14)
--- NOTE | 2019-10-08 15:38 | NUR ---
Social Work Note/Facility Contact: convention worker faxed patients clinicals to [facility], ([phone]).
== END 2019-10-08 15:43 | DRG 885 ==
LOC: ER 17:07 → GPS 18:34 → MEDSURG3 09-16 13:59 → GPSOV3 09-16 16:15 → GPS 09-23 15:53
PROVIDERS: ADMIT Psychiatry & Neurology Psychiatry; ATTEND Internal Medicine
PROC: 0HBNXZZ Excision of Left Foot Skin, External Approach (ICD-10-PCS; principal; 2019-09-16)
PROC: 0HBMXZZ Excision of Right Foot Skin, External Approach (ICD-10-PCS; 2019-09-16)
DX: F20.9 Schizophrenia, unspecified (principal); N39.0 Urinary tract infection, site not specified; F02.81 Dementia in other diseases classified elsewhere, unspecified severity, with behavioral disturbance; Z16.24 Resistance to multiple antibiotics; G30.9 Alzheimer's disease, unspecified; G20 Parkinson's disease; I48.91 Unspecified atrial fibrillation; J44.9 Chronic obstructive pulmonary disease, unspecified; Z91.19 Patient's noncompliance with other medical treatment and regimen; E78.5 Hyperlipidemia, unspecified; E03.9 Hypothyroidism, unspecified; Z79.890 Hormone replacement therapy; F39 Unspecified mood [affective] disorder; L84 Corns and callosities; M20.42 Other hammer toe(s) (acquired), left foot; M20.41 Other hammer toe(s) (acquired), right foot; R26.2 Difficulty in walking, not elsewhere classified; B96.20 Unspecified Escherichia coli [E. coli] as the cause of diseases classified elsewhere; R31.29 Other microscopic hematuria; K21.9 Gastro-esophageal reflux disease without esophagitis; F41.9 Anxiety disorder, unspecified; Z95.0 Presence of cardiac pacemaker; I25.10 Atherosclerotic heart disease of native coronary artery without angina pectoris; I10 Essential (primary) hypertension
CPT/HCPCS: 36415; 80307; 84443; 85025; 85730; 87086; 93005; A4217; A4663; C1758; G0480; G0480-TC; J1630; J2185; J2358; J3490